=== PATIENT | female | born 1990 | race Caucasian/White ===

== ENCOUNTER 2016-09-17 19:21 | Emergency (ER) | payer OTHER ==
--- NOTE | 2016-09-17 19:44 | PD ---
HPI Chief Complaint Possible contractions Date Seen: Sep 17, 2016 Time Seen: 19:38 Travel History International Travel<30 Days: No Contact w/Intl Traveler<30Days: No Known Affected Area: No History of Present Illness HPI 25-year-old 2 para 1 at 35-6/7 weeks gestation who reports mild cramping throughout the afternoon. She denies any bleeding or leakage of fluid. She reports good movement. Para: 1 : 2 History Past Medical History Narrative Medical Acid reflux Obstetric History Obstetric History 1 prior term vaginal delivery Past Surgical History Narrative Surgical None Family History Family History: Negative Social History Alcohol Use: No Tobacco Use: No Substance Abuse: No Allergies-Medications (Allergen,Severity, Reaction): Coded Allergies: No Known Allergies (Unverified , 02/27/16) Home Meds No Active Prescriptions or Reported Meds Review of Systems Except as stated in HPI: all other systems reviewed are Neg Physical Exam Narrative GENERAL: Well-nourished, well-developed patient. SKIN: Warm and dry. HEAD: Normocephalic and atraumatic. EYES: No scleral icterus. No injection or drainage. ENT: No nasal drainage noted. Mucous membranes pink. Airway patent. NECK: Supple, trachea midline. No JVD. ABDOMEN/GI: Abdomen soft, non-tender, bowel sounds present, no rebound, no guarding Gravid to [-] weeks size Fundal Height: [35-] GENITOURINARY: External Genitalia: intact and normal in appearance BUS glands: [Negative-] Cervix: [-] Dilatation: [Fingertip-] Effacement: [-50] Station: [-High] Presentation: [-Vertex] Membranes: [intact] Uterine Contractions: [mild-] FHT's: Category: [1-] Baseline: [-] Reactive: [y-] Variability: [-] Decels: [-] EXTREMITIES: No cyanosis or edema. BACK: Nontender without obvious deformity. No CVA tenderness. NEUROLOGICAL: Awake and alert. Motor and sensory grossly within normal limits. Five out of 5 muscle strength in all muscle groups. Normal speech. Data Data Vital Signs Reviewed: Yes MDM Medical Record Reviewed: Yes Narrative Course / MDM 25-year-old 2 para 1 at 35-6/7 week gestation with uterine irritability. The cervix remained unchanged after recheck 1 hour later. Plan: Discharge home with labor precautions. Follow for routine care Diagnosis Diagnosis: Primary Impression: 35 weeks gestation of Additional Impression: Prasad Patel contractions Disposition: DISCHARGE HOME Condition: Good Scripts No Active Prescriptions or Reported Meds Garth Burrows MD Sep 17, 2016 19:44
== END 2016-09-17 20:55 | disposition home or self-care (01) ==
LOC: HOBED 19:21
DX: O47.03 False labor before 37 completed weeks of gestation, third trimester (principal); Z3A.35 35 weeks gestation of pregnancy
CPT/HCPCS: 59025

== ENCOUNTER 2016-10-06 05:30 | Inpatient (IN) | payer OTHER ==
[2016-10-06] VITALS (91 sets, daily range): BP systolic 96–143; BP diastolic 39–98; PULSE 55–108; RESP 16–20; TEMP 97.6–98.7
--- NOTE | 2016-10-06 06:21 | HHI.HP ---
HPI Chief Complaint Water broke Date Seen: Oct 06, 2016 Travel History International Travel<30 Days: No Contact w/Intl Traveler<30Days: No Known Affected Area: No History of Present Illness HPI Patient is 25-year-old white female at [address] Velasquez for care now presents with spontaneous first the membranes and labor early labor, heart rate tracing is reactive contractions every 2 minutes amnio sure is positive Para: 1 : 2 History Obstetric History Obstetric History One vaginal delivery Family History Family History: Negative Social History Alcohol Use: No Tobacco Use: No Substance Abuse: No Allergies-Medications (Allergen,Severity, Reaction): Coded Allergies: No Known Allergies (Unverified , 02/27/16) Home Meds No Active Prescriptions or Reported Meds Review of Systems General / Constitutional: No: Fever, Weight Gain, Chills, Other Eyes: No: Diploplia, Blurred Vision, Visual changes, Pain, Photophobia HENT: No: Headaches, Vertigo, Lightheadedness Cardiovascular: No: Irregular Rhythm, Chest Pain or Discomfort, Palpitations, Tachycardia, Syncope, Varicosities, Edema, Cyanosis Respiratory: No: Cough, Short of Breath, Other Gastrointestinal: No: Nausea, Vomiting, Diarrhea Genitourinary: No: Decreased Urinary Output, Oliguria Musculoskeletal: No: Limited ROM, Weakness, Cramping, Edema, Pain Skin: No Rash, No Itching, No Dryness, No Lumps, No Change in Pigmentation, No Change in Nails, No Alopecia, No Lesions Neurologic: No: Weakness, Dizziness, Syncope, Focal Abnormalities, Coordination Problem, Headache, Slurred Speech, Seizures Psychiatric: No: Depression, Suicidal Ideations, Homicidal Ideation Endocrine: No: Heat Intolerance, Cold Intolerance, Polydipsia, Polyuria, Other Physical Exam Narrative GENERAL: Well-nourished, well-developed patient. SKIN: Warm and dry. HEAD: Normocephalic and atraumatic. EYES: No scleral icterus. No injection or drainage. ENT: No nasal drainage noted. Mucous membranes pink. Airway patent. NECK: Supple, trachea midline. No JVD. CARDIOVASCULAR: Regular rate and rhythm without murmurs, gallops, or rubs. RESPIRATORY: Breath sounds equal bilaterally. No accessory muscle use. BREASTS: Bilateral exam showed no masses , no retractions, no nipple discharge. ABDOMEN/GI: Abdomen soft, non-tender, bowel sounds present, no rebound, no guarding Gravid to [38-] weeks size Fundal Height: [-38] GENITOURINARY: External Genitalia: intact and normal in appearance BUS glands: [-] Cervix: [-] Dilatation: [4-] Effacement: [-90] Station: [-1] Presentation: [vtx-] Membranes: ruptured] Uterine Contractions: [q 2 min-] FHT's: Category: [1-] Baseline: [133-] Reactive: [-yes] Variability: [-mod] Decels: [none-] EXTREMITIES: No cyanosis or edema. BACK: Nontender without obvious deformity. No CVA tenderness. NEUROLOGICAL: Awake and alert. Motor and sensory grossly within normal limits. Five out of 5 muscle strength in all muscle groups. Normal speech. Data Data Orders Ob (2e) Additional Admit Info (10/06/16 06:16) Labs Amnio sure positive Assessment/Plan Assessment and Plan Patient is 25-year-old white female 38 weeks with spontaneous ruptured membranes early labor cervix 4 cm. heart rate tracing is reactive contractions seen on the monitor. We'll admit anticipate vaginal delivery Sander Agee II, MD Oct 06, 2016 06:21
[2016-10-06] MEDS: LACTATED RINGER'S 1000 ML INJ 1,000 ML IV SCH ×2 (06:26→07:49)
[2016-10-06] MEDS ORDERED: LACTATED RINGER'S 1000 ML INJ 1,000 ML IV PRN (06:26)
[2016-10-06] MEDS ORDERED: MINERAL OIL 10 ML VIAL TOPICAL PRN (06:30)
[2016-10-06] MEDS ORDERED: SODIUM CHLORID 0.9% 500 ML INJ 500 ML IV PRN (06:30)
[2016-10-06] MEDS ORDERED: LIDOCAINE HCL 1% 50 ML VIAL I-DERMAL PRN (06:30)
[2016-10-06] MEDS ORDERED: OXYTOCIN 30 UNITS-500ML PREMIX 500 ML IV ONE ×2 (06:30→13:45)
[2016-10-06] MEDS ORDERED: CITRIC ACID-SODIUM CITRATE LIQ 30 ML UDC PO SCH (06:30)
[2016-10-06] MEDS ORDERED: LIDOCAINE HCL 1% 50 ML VIAL INFIL PRN (06:30)
[2016-10-06] MEDS ORDERED: SODIUM CHLOR 0.9% 1000 ML INJ 1,000 ML IV PRN (06:46)
[2016-10-06 07:12] LABS: BACTERIA, URINE FEW /hpf; BLOOD, URINE TRACE (NEG); COMMENT (UR) CULTURE INDICATED; CULTURE IF INDICATED CULTURE INDICATED; GLUCOSE,URINE NEG (NEG); KETONE, URINE NEG (NEG); MUCUS URINE FEW /lpf (OCC); NITRITE,URINE NEG (NEG); SQUAMOUS EPITHELIAL CELL URINE 2 /hpf (0-5); URINE COLOR LIGHT-YELLOW (YELLW/STRAW)
[2016-10-06] MEDS ORDERED: fentaNYL 2MCG-BUPIV 0.125% INJ 100 ML ONE (07:22)
[2016-10-06] MEDS ORDERED: ePHEDrine/NS 25 MG/5 ML SYR ONE (07:23)
[2016-10-06 07:34] LABS: AUTOMATED NEUTROPHIL # 10.4 TH/MM3 (1.8-7.7); BASOPHIL # 0.1 TH/MM3 (0-0.2); BASOPHIL % 0.5 % (0.0-2.0); EOSINOPHIL # 0.2 TH/MM3 (0-0.4); EOSINOPHIL % 1.2 % (0.0-4.0); HEMATOCRIT 26.3 % (35.0-46.0); LYMPH % 17.9 % (9.0-44.0); LYMPHOCYTE # 2.5 TH/MM3 (1.0-4.8); MEAN CELL VOLUME 73.3 FL (80.0-100.0); MEAN CORPUSCULAR HEMOGLOBIN 23.4 PG (27.0-34.0); MEAN CORPUSCULAR HGB CONC 31.9 % (32.0-36.0); MONO % 6.9 % (0.0-8.0); NEUT % 73.5 % (16.0-70.0); PLATELET COUNT 192 TH/MM3 (150-450); RED BLOOD COUNT 3.58 MIL/MM3 (4.00-5.30); RED CELL DISTRIBUTION WIDTH 15.4 % (11.6-17.2); WHITE BLOOD COUNT 14.2 TH/MM3 (4.0-11.0)
[2016-10-06 07:36] LABS: HEMO FLAGS AUTO DIFF
[2016-10-06 08:14] LABS: BANDS 19 % (0-6); EOSINOPHILS 1 % (0-4); METAMYELOCYTES 1 % (0-1); NEUTROPHIL # MANUAL DIFF 11.4 TH/MM3 (1.8-7.7); PLATELET ESTIMATE SMEAR NORMAL (NORMAL); PLATELET MORPHOLOGY ENLARGED (NORMAL); POLYS (SEG NEUTROPHILS) 60 % (16-70); WBC DIFF SAMPLE 100
[2016-10-06 08:15] LABS: SCAN/DIFF FINAL DIFF MANUAL
[2016-10-06] MEDS ORDERED: DO NOT ADMINISTER ANTICOAGULANTS XX PRN (10:00)
[2016-10-06] MEDS ORDERED: NO SYSTEM NARCOTICS XX PRN (10:00)
[2016-10-06] MEDS ORDERED: fentaNYL 2MCG-BUPIV 0.125% 100 ML EPIDURAL SCH (10:00)
[2016-10-06] MEDS ORDERED: ePHEDrine/NS 25 MG/5 ML SYR IV PRN (10:00)
[2016-10-06] MEDS ORDERED: OXYTOCIN 30 UNITS/NS 500ML PREMIX IV SCH (12:30)
--- NOTE | 2016-10-06 13:42 | PD.OB.DELI ---
Delivery Date: Oct 06, 2016 Anesthesia: Epidural Episiotomy: None Vaginal Delivery: Normal Presentation: Occiput anterior Nuchal Cord: x1 Delayed cord clamping (45 sec): Yes : Female One Minute : 9 Five Minute : 9 Weight: 6/15 Infant Care: Suctioned, Spontaneous crying, Responded to stimulation Placenta: Spontaneous delivery, Intact, Uterus explored +, 3 vessel cord Laceration: 1 deg Repair: Vicryl running Additional Information Beautiful delivery of Wendy An Great grandmother present. Small periclitoral lacerations repaired with 5-0 vicryl Eileen Velasquez MD Oct 06, 2016 13:42
[2016-10-06] MEDS ORDERED: BENZOCAINE 20% TOPICAL SPRAY 60 ML CAN TOPICAL PRN (13:45)
[2016-10-06] MEDS ORDERED: SODIUM CHLORIDE 0.9% FLUSH 5 ML FLUSH IV PRN (13:45)
[2016-10-06] MEDS ORDERED: IBUPROFEN 600 MG TAB PO PRN (13:45)
[2016-10-06] MEDS ORDERED: ZOLPIDEM TARTRATE 5 MG TAB PO PRN (13:45)
[2016-10-06] MEDS ORDERED: WITCH HAZEL 50%/GLYCERIN 12.5% 40 PAD JAR TOPICAL PRN (13:45)
[2016-10-06] MEDS ORDERED: ALUMINUM/MAGNESIUM/SIMETH 30 ML CUP PO PRN (13:45)
[2016-10-06] MEDS ORDERED: oxyCODONE/ACETAMINOPHEN 5 MG/325 MG TAB PO PRN ×2 (13:45)
[2016-10-06] MEDS ORDERED: DOCUSATE SODIUM 50 MG/SENNA 8.6 MG TAB PO PRN (13:45)
[2016-10-06] MEDS ORDERED: ONDANSETRON ODT 4 MG TAB PO PRN (13:45)
[2016-10-06] MEDS ORDERED: ACETAMINOPHEN 325 MG TAB PO PRN (13:45)
[2016-10-06] MEDS ORDERED: MEASLES, MUMPS, RUBELLA VACCINE 0.5 ML VIAL SQ ONE (16:00)
[2016-10-06] MEDS ORDERED: DIPHTH/TETANUS/ACEL PERTUSSIS (BOOSTER) 0.5 ML VIAL/PFS IM ONE (16:00)
[2016-10-07 06:04] LABS: MEAN CORPUSCULAR HEMOGLOBIN 23.6 PG (27.0-34.0); MEAN CORPUSCULAR HGB CONC 32.3 % (32.0-36.0); PLATELET COUNT 143 TH/MM3 (150-450); RED BLOOD COUNT 2.85 MIL/MM3 (4.00-5.30); RED CELL DISTRIBUTION WIDTH 15.8 % (11.6-17.2); WHITE BLOOD COUNT 15.1 TH/MM3 (4.0-11.0)
[2016-10-07 06:17] LABS: REVIEW FLAG FINAL
[2016-10-07 06:18] LABS: HEMATOCRIT 20.8 % (35.0-46.0)
[2016-10-07 09:00] VITALS: BP 109/72; PULSE 69; RESP 16; TEMP 98.1
--- NOTE | 2016-10-07 09:20 | HHI.OB ---
Subjective Post Day: 1 Objective Vitals/I&O Vital Signs Date Time Temp Pulse Resp B/P Pulse Ox O2 Delivery O2 Flow Rate FiO2 10/06/16 21:45 98.5 68 18 109/69 10/06/16 15:45 98.7 74 16 103/70 10/06/16 15:00 59 108/67 10/06/16 14:45 70 107/72 10/06/16 14:32 71 97/65 10/06/16 14:18 57 110/65 10/06/16 14:16 57 10/06/16 14:01 85 112/39 10/06/16 13:45 70 118/92 10/06/16 13:45 97.8 20 10/06/16 13:15 91 121/89 10/06/16 13:15 67 10/06/16 13:05 65 10/06/16 13:00 69 10/06/16 13:00 68 121/81 10/06/16 12:55 68 10/06/16 12:50 58 10/06/16 12:45 86 10/06/16 12:45 81 106/73 10/06/16 12:40 84 10/06/16 12:35 71 10/06/16 12:30 105 100/74 10/06/16 12:30 108 10/06/16 12:25 59 10/06/16 12:20 57 10/06/16 12:15 57 10/06/16 12:15 55 105/61 10/06/16 12:10 55 10/06/16 12:05 57 10/06/16 12:00 98.1 18 10/06/16 12:00 59 96/60 10/06/16 12:00 62 10/06/16 11:55 66 10/06/16 11:55 66 10/06/16 11:50 61 10/06/16 11:45 65 115/75 10/06/16 11:45 58 10/06/16 11:40 62 10/06/16 11:35 65 10/06/16 11:30 61 10/06/16 11:30 75 111/71 10/06/16 11:25 72 10/06/16 11:20 64 10/06/16 11:15 67 107/71 10/06/16 11:15 66 10/06/16 11:10 67 10/06/16 11:10 67 10/06/16 11:05 63 10/06/16 11:00 74 110/72 10/06/16 11:00 64 10/06/16 10:55 75 10/06/16 10:55 75 10/06/16 10:50 90 10/06/16 10:50 90 10/06/16 10:45 63 10/06/16 10:45 62 110/64 10/06/16 10:40 58 10/06/16 10:40 58 10/06/16 10:35 62 10/06/16 10:35 62 10/06/16 10:30 111/60 10/06/16 10:30 63 111/60 10/06/16 10:30 59 10/06/16 10:25 59 10/06/16 10:25 59 10/06/16 10:20 62 10/06/16 10:15 89 113/68 10/06/16 10:15 82 10/06/16 10:10 71 10/06/16 10:05 73 10/06/16 10:00 97.6 10/06/16 10:00 67 10/06/16 10:00 69 113/71 10/06/16 10:00 97.6 10/06/16 09:55 96 10/06/16 09:50 72 10/06/16 09:46 103 105/71 10/06/16 09:45 83 10/06/16 09:40 79 10/06/16 09:35 80 10/06/16 09:30 71 10/06/16 09:30 78 110/87 10/06/16 09:25 77 10/06/16 09:20 82 Objective Remarks GENERAL: Well-nourished, well-developed patient. CARDIOVASCULAR: Regular rate and rhythm without murmurs, gallops, or rubs. RESPIRATORY: Breath sounds equal bilaterally. No accessory muscle use. ABDOMEN/GI: Abdomen soft, non-tender. Fundus: Firm, non-tender at umbilicus. GENITOURINARY: Light to moderate bleeding. EXTREMITIES: No cyanosis or edema, non-tender, without signs of DVT. Medications and IVs cc Current Medications Medications (Trade) Dose Ordered Sig/Champ Route Start Time Stop Time Status Last Admin (NS Flush) 2 ml BID IV 10/06/16 21:00 (NS Flush) 2 ml UNSCH PRN IV 10/06/16 13:45 (Tylenol) 650 mg Q4H PRN PO 10/06/16 13:45 (Motrin) 600 mg Q6H PRN PO 10/06/16 13:45 10/07/16 04:20 (Percocet 5-325 Mg) 1 tab Q4H PRN PO 10/06/16 13:45 (Percocet 5-325 Mg) 2 tab Q4H PRN PO 10/06/16 13:45 (Americaine 20% Top Spr) 1 spray Q4H PRN TOPICAL 10/06/16 13:45 10/06/16 22:48 (Tucks Pads) 1 applic QID PRN TOPICAL 10/06/16 13:45 10/06/16 22:48 (Judith-Colace) 2 tab Q12H PRN PO 10/06/16 13:45 (Ambien) 5 mg HS PRN PO 10/06/16 13:45 (Mag-Al Plus Susp Liq) 15 ml Q8H PRN PO 10/06/16 13:45 (Zofran Odt) 4 mg Q6H PRN PO 10/06/16 13:45 Assessment/Plan Problem List: (1) Normal vaginal delivery Plan: routine (2) Severe anemia Plan: venofer Assessment and Plan ppd #1 pt doing well severe anemia, will repeat cbc today and start venofer ambulating in room without difficulty, denies sob, dizziness or chest pain bonding with pain well managed with oral pain medication routine Discharge Planning consider dc home tomorrow Sugey Cortez Oct 07, 2016 09:20
[2016-10-07] MEDS: IRON SUCROSE INJ 200 MG in SODIUM CHLORIDE 0.9% INJ 100 ML IV SCH (11:43)
[2016-10-07 20:45] VITALS: BP 105/67; PULSE 77; RESP 18; TEMP 98.3
[2016-10-07] MEDS: SODIUM CHLORIDE 0.9% FLUSH 5 ML FLUSH IV SCH (21:00)
[2016-10-08 06:06] LABS: HEMATOCRIT 21.9 % (35.0-46.0); MEAN CELL VOLUME 73.7 FL (80.0-100.0); MEAN CORPUSCULAR HEMOGLOBIN 23.6 PG (27.0-34.0); PLATELET COUNT 165 TH/MM3 (150-450); RED BLOOD COUNT 2.98 MIL/MM3 (4.00-5.30); RED CELL DISTRIBUTION WIDTH 15.9 % (11.6-17.2); WHITE BLOOD COUNT 13.4 TH/MM3 (4.0-11.0)
[2016-10-08 06:13] LABS: REVIEW FLAG FINAL
--- NOTE | 2016-10-08 07:50 | HHI.OB ---
Subjective Post Day: 2 Remarks Doing well, no dizziness or chest pain or SOB. Baby is good Ready to go home Objective Vitals/I&O Vital Signs Date Time Temp Pulse Resp B/P Pulse Ox O2 Delivery O2 Flow Rate FiO2 10/07/16 20:45 98.3 77 18 105/67 10/07/16 09:00 98.1 69 16 109/72 Other Results Laboratory Tests Test 10/08/16 04:14 White Blood Count 13.4 TH/MM3 Red Blood Count 2.98 MIL/MM3 Hemoglobin 7.0 GM/DL Hematocrit 21.9 % Mean Corpuscular Volume 73.7 FL Mean Corpuscular Hemoglobin 23.6 PG Mean Corpuscular Hemoglobin 32.0 % Concent Red Cell Distribution Width 15.9 % Platelet Count 165 TH/MM3 Mean Platelet Volume 10.3 FL Objective Remarks GENERAL: Well-nourished, well-developed patient. CARDIOVASCULAR: Regular rate and rhythm without murmurs, gallops, or rubs. RESPIRATORY: Breath sounds equal bilaterally. No accessory muscle use. ABDOMEN/GI: Abdomen soft, non-tender. Fundus: Firm, non-tender at umbilicus. GENITOURINARY: Light to moderate bleeding. EXTREMITIES: No cyanosis or edema, non-tender, without signs of DVT. Medications and IVs Current Medications Medications (Trade) Dose Ordered Sig/Champ Route Start Time Stop Time Status Last Admin (NS Flush) 2 ml BID IV 10/06/16 21:00 10/07/16 21:00 (NS Flush) 2 ml UNSCH PRN IV 10/06/16 13:45 (Tylenol) 650 mg Q4H PRN PO 10/06/16 13:45 (Motrin) 600 mg Q6H PRN PO 10/06/16 13:45 10/07/16 04:20 (Percocet 5-325 Mg) 1 tab Q4H PRN PO 10/06/16 13:45 (Percocet 5-325 Mg) 2 tab Q4H PRN PO 10/06/16 13:45 (Americaine 20% Top Spr) 1 spray Q4H PRN TOPICAL 10/06/16 13:45 10/06/16 22:48 (Tucks Pads) 1 applic QID PRN TOPICAL 10/06/16 13:45 10/06/16 22:48 (Judith-Colace) 2 tab Q12H PRN PO 10/06/16 13:45 (Ambien) 5 mg HS PRN PO 10/06/16 13:45 (Mag-Al Plus Susp Liq) 15 ml Q8H PRN PO 10/06/16 13:45 Ondansetron HCl 4 mg 4 mg Q6H PRN PO 10/06/16 13:45 (Venofer Inj/NS Inj) 110 ml @ 110 mls/hr DAILY IV 10/07/16 11:00 10/09/16 09:59 10/07/16 11:43 Assessment/Plan Problem List: (1) Normal vaginal delivery Plan: routine (2) Severe anemia Plan: venofer Assessment and Plan ppd #2 pt doing well severe anemia, got venofer yesterday and will get another one today. ambulating in room without difficulty, denies sob, dizziness or chest pain routine consider d/c home today. Discharge Planning consider dc home tomorrow Eileen Velasquez MD Oct 08, 2016 07:50
[2016-10-08] MEDS: SODIUM CHLORIDE 0.9% FLUSH 5 ML FLUSH IV SCH (09:24)
[2016-10-08] MEDS: IRON SUCROSE INJ 200 MG in SODIUM CHLORIDE 0.9% INJ 100 ML IV SCH (09:25)
--- NOTE | 2016-10-08 10:24 | HHI.DCPOC ---
Discharge Care Plan Diagnosis: (1) Severe anemia (2) Normal vaginal delivery Your Health Problems Are: Vaginal delivery Additional Problems f/u with prenatal teacher for anemia Report Symptoms to Your Doctor -Temperate above 100.5 degrees -Redness, of incision or excessive or foul smelling drainage -Unusual pain or calf pain -Increased vaginal bleeding -Painful or difficulty urinating -Feelings of extreme sadness or anxiety after 2 weeks Goals to Promote Your Health * To prevent worsening of your condition and complications * To maintain your health at the optimal level Directions to Meet Your Goals Take your medications as prescribed Follow your dietary instruction Follow activity as directed Ensure plenty of rest for recovery Drink fluids for hydration Keep your appointments as scheduled Take your immunizations and boosters as scheduled If your symptoms worsen call your PCP, if no PCP go to Urgent Care Center or Emergency Room Smoking is Dangerous to Your Health. Avoid second hand smoke Call the 24-hour crisis hotline for domestic abuse at Sugey Cortez Oct 08, 2016 10:24
--- NOTE | 2016-10-08 10:38 | HHI.DS ---
Admission Date Oct 06, 2016 at 06:16 Discharge Date: Oct 08, 2016 Admitting Diagnosis term srom Diagnosis: (1) Normal vaginal delivery Diagnosis: Principal (2) Severe anemia Diagnosis: Secondary Delivery Date: Oct 06, 2016 Vaginal Delivery: Normal : Female Brief History term pregnancyc srom severe anemia Hospital Course severe anemia treated with venofer routine care Pt Condition on Discharge: Good () Discharge Disposition: Discharge Home Discharge Instructions Diet Instructions: As Tolerated, No Restrictions Additional Diet Instructions: Drink at least 8 - 16 oz bottles of water a day Activities You Can Perform: Shower Only-No Bath, Sitz Bath Activities to Avoid: Lifting/Bending, Sexual Activity Additional Activity Instruc.: No driving until off pain medications Do not lift anything heavier than your baby in an infant carrier Follow up Referrals: JUICE TESTER - 2 Weeks @ [facility] Medication Profile: No Active Prescriptions or Reported Meds Sugey Cortez Oct 08, 2016 10:38
[2016-10-08] MEDS ORDERED: OXYC1TAB63 PO (13:45)
[2016-10-08] MEDS ORDERED: IBUP-232 PO (13:45)
== END 2016-10-08 14:03 | disposition home or self-care (01) | DRG 775 ==
LOC: HOBED 05:30 → H2EA 06:16 → H1EA 15:34
PROVIDERS: ADMIT Obstetrics & Gynecology; ATTEND Obstetrics & Gynecology
PROC: 10E0XZZ Delivery of Products of Conception, External Approach (ICD-10-PCS; principal; 2016-10-06)
PROC: 0HQ9XZZ Repair Perineum Skin, External Approach (ICD-10-PCS; 2016-10-06)
PROC: 3E0S3CZ (ICD-10-PCS; 2016-10-06)
PROC: 00HU33Z Insertion of Infusion Device into Spinal Canal, Percutaneous Approach (ICD-10-PCS; 2016-10-06)
DX: O70.0 First degree perineal laceration during delivery (principal); O90.81 Anemia of the puerperium; D64.9 Anemia, unspecified; O69.81X0 Labor and delivery complicated by cord around neck, without compression, not applicable or unspecified; Z37.0 Single live birth; Z3A.38 38 weeks gestation of pregnancy
CPT/HCPCS: 81001; 84112; 85007; 85027; 86900; 86901; 87086; 90715; 99285; J1756; J2590; J3010; J7120